=== PATIENT | male | born 1970 | race Caucasian/White ===

== ENCOUNTER 2020-04-29 14:27 | Outpatient (REF) | payer BC, SELFPAY ==
[2020-04-29 21:33] LABS: HCT 38.5 % (40.0-50.0); HGB 12.4 g/dL (13.5-17.5); Mean Corp. HGB Concentration 32.2 g/dL (32.0-36.0); Mean Corpuscular Hemoglobin 25.8 pg (27.0-33.0); Mean Platelet Volume 10.9 fL (8.0-11.0); Platelet Count 249 x1000/uL (130-400); RBC 4.81 m/cumm (4.50-6.00); RBC Distribution Width 14.3 % (11.8-14.1); White Blood Cell Count 5.21 k/cumm (4.4-10.8)
[2020-04-29 22:01] LABS: ALT 41 U/L (16-63); AST 30 U/L (15-37); Alkaline Phosphatase 50 U/L (46-116); Anion Gap 9.5 mmol/L (3-11); BUN 15 mg/dL (7-18); Bilirubin, Total 0.4 mg/dL (0.2-1.0); CO2 25.5 mmol/L (21.0-32.0); CREATININE 0.94 mg/dL (0.70-1.30); Calcium 8.9 mg/dL (8.5-10.1); Calculated LDL 113 mg/dL (<100); Chloride 105 mmol/L (98-107); Cholesterol 188 mg/dL (<200); Glucose 91 mg/dL (74-106); HDL Cholesterol 40 mg/dL (40-60); Potassium 4.3 mmol/L (3.5-5.1); Sodium 140 mmol/L (136-145); TSH 1.26 uIU/mL (0.36-3.74); Total Protein 6.8 g/dL (6.4-8.2); Triglyceride 175 mg/dL (<150)
== END 2020-04-29 14:47 ==
LOC: NCHCN 14:27
PROVIDERS: PCP Family Medicine; Visit Provider Internal Medicine
DX: R73.09 Other abnormal glucose (principal); R53.83 Other fatigue
CPT/HCPCS: 80053; 80061; 85027; 84443

== ENCOUNTER 2020-05-16 14:16 | Outpatient (REF) | payer BC, SELFPAY ==
[2020-05-16 20:11] LABS: Iron 41 ug/dL (65-175); Total Iron Binding Capacity 451 ug/dL (250-450); Transferrin Sat 9 % (20-55)
[2020-05-16 20:39] LABS: Ferritin 9 ng/mL (26-388); Vitamin B12 473 pg/mL (193-986)
== END 2020-05-16 14:36 ==
LOC: NCHCN 14:16
PROVIDERS: PCP Family Medicine; Visit Provider Nurse Practitioner Community Health
DX: D64.9 Anemia, unspecified (principal)
CPT/HCPCS: 82607; 82728; 83540; 83550

== ENCOUNTER 2020-06-24 18:46 | Outpatient (REF) | payer BC, SELFPAY ==
[2020-06-27 12:25] LABS: IgA 171 mg/dL (85-499); Interpretation (See Note); Tissue Transglutaminase IgA <1.2 U/mL (<4.0)
== END 2020-06-24 19:06 ==
LOC: NCHCN 18:46
PROVIDERS: PCP Family Medicine; Visit Provider Internal Medicine
DX: E61.1 Iron deficiency (principal); R19.7 Diarrhea, unspecified
CPT/HCPCS: 82784; 83516

== ENCOUNTER 2020-07-19 15:03 | Outpatient (REF) | payer BC, SELFPAY ==
[2020-07-19 21:28] LABS: Abs Immature Grans 0.01 10^3/uL (0.0-0.06); Absolute Basophil Count 0.02 10^3/uL (0.0-0.2); Absolute Eosinophil Count 0.12 10^3/uL (0.0-0.7); Absolute Lymphocyte Count 2.24 10^3/uL (1.2-3.4); Absolute Neutrophil Count 3.08 10^3/uL (1.2-6.7); Basophils % 0.3; HCT 42.9 % (40.0-50.0); HGB 14.2 g/dL (13.5-17.5); Immature Grans % 0.2; Lymphocytes % 38.2; MCH 27.8 pg (27.0-33.0); MCHC 33.1 % (32.0-36.0); MPV 11.3 fL (8.0-11.0); Monocytes % 6.8; Neutrophils % 52.5; Nucleated RBC 0 %; Platelet Count 220 10^3/uL (130-400); RBC 5.11 10^6/uL (4.36-5.78); RDW 16.6 % (11.8-14.1); RDW-SD 51.4 fL; WBC 5.87 10^3/uL (4.4-10.8)
[2020-07-19 22:08] LABS: Ferritin 32 ng/mL (26-388)
== END 2020-07-19 15:23 ==
LOC: NCHCN 15:03
PROVIDERS: PCP Family Medicine; Visit Provider Internal Medicine
DX: E61.1 Iron deficiency (principal)
CPT/HCPCS: 82728; 85025

== ENCOUNTER 2020-10-21 10:33 | Outpatient (REF) | payer BC, SELFPAY ==
[2020-10-21 21:46] LABS: Hemoglobin A1C 5.3 % (<5.7)
[2020-10-21 22:03] LABS: Calculated LDL 151 mg/dL (<100); Cholesterol 218 mg/dL (<200); Ferritin 53 ng/mL (26-388); Glucose 99 mg/dL (74-106); HDL Cholesterol 49 mg/dL (40-60); Triglyceride 93 mg/dL (<150)
== END 2020-10-21 10:53 ==
LOC: NCHCN 10:33
PROVIDERS: PCP Family Medicine; Visit Provider Internal Medicine
DX: R73.09 Other abnormal glucose (principal); E61.1 Iron deficiency; Z13.220 Encounter for screening for lipoid disorders
CPT/HCPCS: 80061; 82947; 82728; 83036

== ENCOUNTER 2021-05-26 09:04 | Outpatient (REF) | payer BC, SELFPAY ==
[2021-05-26 14:41] LABS: Abs Immature Grans 0.01 10^3/uL (0.0-0.06); Absolute Basophil Count 0.02 10^3/uL (0.0-0.2); Absolute Eosinophil Count 0.17 10^3/uL (0.0-0.7); Absolute Lymphocyte Count 1.89 10^3/uL (1.2-3.4); Absolute Monocyte Count 0.42 10^3/uL (0.1-0.8); Absolute Neutrophil Count 2.15 10^3/uL (1.2-6.7); Basophils % 0.4; Eosinophils % 3.6; HCT 40.3 % (40.0-50.0); HGB 13.4 g/dL (13.5-17.5); Immature Grans % 0.2; Lymphocytes % 40.6; MCH 29.5 pg (27.0-33.0); MCHC 33.3 % (32.0-36.0); MCV 88.8 fL (80-95); MPV 10.8 fL (8.0-11.0); Neutrophils % 46.2; Nucleated RBC 0 %; Platelet Count 229 10^3/uL (130-400); RBC 4.54 10^6/uL (4.36-5.78); RDW 13.2 % (11.8-14.1); RDW-SD 42.5 fL; WBC 4.66 10^3/uL (4.4-10.8)
[2021-05-26 15:00] LABS: Hemoglobin A1C 5.8 % (<5.7)
[2021-05-26 15:07] LABS: Calculated LDL 138 mg/dL (<100); Cholesterol 203 mg/dL (<200); Ferritin 15 ng/mL (26-388); HDL Cholesterol 52 mg/dL (40-60); Triglyceride 65 mg/dL (<150)
== END 2021-05-26 09:05 | disposition home or self-care (01) ==
LOC: NCHCN 09:04
PROVIDERS: PCP Family Medicine; Visit Provider Internal Medicine
DX: R73.03 Prediabetes (principal); E78.5 Hyperlipidemia, unspecified; D64.9 Anemia, unspecified
CPT/HCPCS: 80061; 82728; 83036; 85025

== ENCOUNTER 2021-06-05 11:49 | Outpatient (REF) | payer BC, SELFPAY ==
[2021-06-09 19:30] LABS: Testosterone, Free 7.32 ng/dL (4.06-15.6); Testosterone, Total 305 ng/dL (240-950)
== END 2021-06-05 11:50 | disposition home or self-care (01) ==
LOC: NCHCN 11:49
PROVIDERS: PCP Family Medicine; Visit Provider Internal Medicine
DX: D64.9 Anemia, unspecified (principal); N52.9 Male erectile dysfunction, unspecified
CPT/HCPCS: 84402; 84403

== ENCOUNTER 2021-12-04 15:49 | Outpatient (REF) | payer BC, SELFPAY ==
[2021-12-04 15:32] LABS: Abs Immature Grans 0.01 10^3/uL (0.0-0.06); Absolute Basophil Count 0.02 10^3/uL (0.0-0.2); Absolute Eosinophil Count 0.15 10^3/uL (0.0-0.7); Absolute Monocyte Count 0.48 10^3/uL (0.1-0.8); Absolute Neutrophil Count 2.86 10^3/uL (1.2-6.7); Basophils % 0.4; Eosinophils % 2.7; HCT 45.9 % (40.0-50.0); HGB 15.4 g/dL (13.5-17.5); Immature Grans % 0.2; Lymphocytes % 37.4; MCH 30.7 pg (27.0-33.0); MCHC 33.6 % (32.0-36.0); MCV 91.4 fL (80-95); MPV 10.5 fL (8.0-11.0); Monocytes % 8.5; Neutrophils % 50.8; Nucleated RBC 0 %; Platelet Count 198 10^3/uL (130-400); RBC 5.02 10^6/uL (4.36-5.78); RDW 12.2 % (11.8-14.1); RDW-SD 40.8 fL; WBC 5.62 10^3/uL (4.4-10.8)
[2021-12-04 15:53] LABS: ALT 40 U/L (16-63); AST 25 U/L (15-37); Albumin 4.4 g/dL (3.4-5.0); Alkaline Phosphatase 46 U/L (46-116); Anion Gap 9.1 mmol/L (3-11); BUN 23 mg/dL (7-18); Bilirubin, Total 0.5 mg/dL (0.2-1.0); CO2 27.9 mmol/L (21.0-32.0); CREATININE 0.9 mg/dL (0.70-1.30); Calcium 8.8 mg/dL (8.5-10.1); Chloride 103 mmol/L (98-107); Ferritin 106 ng/mL (26-388); Glucose 107 mg/dL (74-106); Potassium 3.7 mmol/L (3.5-5.1); Sodium 140 mmol/L (136-145); Total Protein 7.2 g/dL (6.4-8.2)
[2021-12-04 16:12] LABS: Hemoglobin A1C 5.3 % (<5.7)
== END 2021-12-04 15:50 | disposition home or self-care (01) ==
LOC: NCHCN 15:49
PROVIDERS: PCP Family Medicine; Visit Provider Internal Medicine
DX: D64.9 Anemia, unspecified (principal); E61.1 Iron deficiency; R73.03 Prediabetes
CPT/HCPCS: 80053; 82728; 83036; 85025

== ENCOUNTER 2022-12-04 13:18 | Outpatient (REF) | payer BC, SELFPAY ==
[2022-12-04 14:55] LABS: Abs Immature Grans 0.02 10^3/uL (0.0-0.06); Absolute Basophil Count 0.02 10^3/uL (0.0-0.2); Absolute Eosinophil Count 0.09 10^3/uL (0.0-0.7); Absolute Lymphocyte Count 1.57 10^3/uL (1.2-3.4); Absolute Monocyte Count 0.39 10^3/uL (0.1-0.8); Absolute Neutrophil Count 2.36 10^3/uL (1.2-6.7); Basophils % 0.4; HGB 14.8 g/dL (13.5-17.5); Immature Grans % 0.4; Lymphocytes % 35.3; MCH 30.6 pg (27.0-33.0); MCHC 34.4 % (32.0-36.0); MCV 89 fL (80-95); MPV 10.8 fL (8.0-11.0); Monocytes % 8.8; Neutrophils % 53.1; Platelet Count 188 10^3/uL (130-400); RBC 4.84 10^6/uL (4.36-5.78); RDW 12.4 % (11.8-14.1); RDW-SD 40.5 fL; WBC 4.45 10^3/uL (4.4-10.8)
[2022-12-04 15:10] LABS: Calculated LDL 140 mg/dL (<100); Cholesterol 204 mg/dL (<200); HDL Cholesterol 46 mg/dL (40-60); Triglyceride 93 mg/dL (<150)
[2022-12-04 15:29] LABS: Hemoglobin A1C 5.4 % (<5.7)
== END 2022-12-04 13:19 | disposition home or self-care (01) ==
LOC: NCHCN 13:18
PROVIDERS: PCP Family Medicine; Visit Provider Internal Medicine
DX: D64.9 Anemia, unspecified (principal); R73.03 Prediabetes; E78.5 Hyperlipidemia, unspecified
CPT/HCPCS: 80061; 83036; 85025

== ENCOUNTER 2023-11-11 12:44 | Outpatient (CLI) | payer BC, SELFPAY ==
--- NOTE | 2023-11-11 08:15 | DI.RAD_ITS ---
Exam(s) XR KNEE LT 4V AP,LAT,AYANNA,PAT EXAM: XR KNEE LT 4V AP,LAT,AYANNA,PAT CLINICAL HISTORY: L knee pain. TECHNIQUE: 2D digital imaging was performed of the left knee. Four images were obtained. Merchant, AP, lateral and PA tunnel views were obtained. COMPARISON: No exams were available for comparison FINDINGS: BONES: No acute fracture is present. No bony destructive lesion is seen. JOINTS: The knee is normally aligned. No joint effusion is seen. SOFT TISSUE: Normal. IMPRESSION: Normal radiographs of the left knee. If there is concern for internal derangement, an MRI may be obta ined for further evaluation. DATA REPOSITORY: RADIATION DOSE DELIVERED:
== END 2023-11-11 12:45 | disposition home or self-care (01) ==
LOC: DIORS 12:44
PROVIDERS: PCP Internal Medicine; Visit Provider Physician Assistant
DX: M25.562 Pain in left knee (principal)
CPT/HCPCS: 73564

== ENCOUNTER → 2023-11-29 00:31 | Outpatient (CLI) | payer BC, SELFPAY ==
--- NOTE | 2023-11-29 11:20 | DI.MRI_ITS ---
Exam(s) MR LOWER JOINT LT WO EXAM: MR LOWER JOINT LT WO CLINICAL HISTORY: PAIN,INTERNAL DERANGEMENT LT KNEE,M23.92. TECHNIQUE: Multiplanar multisequence MRI was performed. COMPARISON: CR XR KNEE LT 4V AP,LAT,AYANNA,PAT from 11/11/2023 FINDINGS: BONES: There is no fracture or contusion pattern. JOINTS: A small joint effusion is present. Articular cartilage: Patellofemoral joint: Thinning and focal defect at patellar apex. Small amount of high signal in the underlying bone. Medial femoral tibial joint: Articular cartilage is unremarkable. Lateral femoral tibial joint: Articular cartilage is unremarkable. TENDONS: Extensor mechanism: Unremarkable. Medial retinaculum: Unremarkable. Lateral retinaculum: Unremarkable. Popliteus: Unremarkable. MUSCLES: Unremarkable. MENISCI: The medial meniscus shows a radially oriented tear near the root. Renal changes in the body. The lateral meniscus is unremarkable. SOFT TISSUES: small Gordon's cyst. Metallic artifacts in the subcutaneous fat anterior to the cain la and proximal patellar tendon. LIGAMENTS: Anterior Cruciate: some surrounding fluid but no visible focal tear. Posterior Cruciate: Unremarkable. Medial Collateral:Unremarkable. Lateral Collateral: Unremarkable. IMPRESSION: Radial tear near the root of the posterior horn of the medial meniscus. 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 DATA REPOSITORY:
== END ==
PROVIDERS: PCP Internal Medicine; Visit Provider Student in an Organized Health Care Education/Training Program
DX: M23.222 Derangement of posterior horn of medial meniscus due to old tear or injury, left knee (principal)
CPT/HCPCS: 73721

== ENCOUNTER 2024-02-05 08:10 | Outpatient (REF) | payer BC, SELFPAY ==
[2024-02-05 15:43] LABS: HCT 43.3 % (40.0-50.0); MCH 30.6 pg (27.0-33.0); MCHC 34.6 % (32.0-36.0); MCV 88 fL (80-95); MPV 10.4 fL (8.0-11.0); Platelet Count 222 10^3/uL (130-400); RDW 12.6 % (11.8-14.1); RDW-SD 40.8 fL; WBC 4.93 10^3/uL (4.4-10.8)
[2024-02-05 16:09] LABS: ALT 32 U/L (16-63); AST 26 U/L (15-37); Albumin 4.2 g/dL (3.4-5.0); Alkaline Phosphatase 43 U/L (46-116); Anion Gap 9.6 mmol/L (3-11); BUN 19 mg/dL (7-18); Bilirubin, Total 0.7 mg/dL (0.2-1.0); CO2 26.4 mmol/L (21.0-32.0); Calcium 8.8 mg/dL (8.5-10.1); Calculated LDL 148 mg/dL (<100); Chloride 107 mmol/L (98-107); Cholesterol 214 mg/dL (<200); Estimated GFR 89.44 (mL/min/1.73m2); Ferritin 133 ng/mL (26-388); Glucose 103 mg/dL (74-106); HDL Cholesterol 47 mg/dL (40-60); Potassium 4.5 mmol/L (3.5-5.1); Sodium 143 mmol/L (136-145); Total Protein 7.2 g/dL (6.4-8.2); Triglyceride 96 mg/dL (<150)
[2024-02-05 16:13] LABS: Hemoglobin A1C 5.6 % (<5.7)
== END 2024-02-05 08:11 | disposition home or self-care (01) ==
LOC: NCHCN 08:10
PROVIDERS: PCP Internal Medicine; Visit Provider Internal Medicine
DX: Z00.00 Encounter for general adult medical examination without abnormal findings (principal); E61.1 Iron deficiency; Z13.220 Encounter for screening for lipoid disorders; Z13.228 Encounter for screening for other metabolic disorders; Z13.1 Encounter for screening for diabetes mellitus
CPT/HCPCS: 80053; 80061; 85027; 82728; 83036

== ENCOUNTER 2024-06-17 09:16 | Day surgery (SDC) | payer BC, SELFPAY ==
[2024-06-17 09:21] VITALS: BP 113/67; PULSE 70; RESP 16; TEMP 36; O2SAT 95
[2024-06-17 09:38] VITALS: BMI 29.2
--- NOTE | 2024-06-17 09:38 | W.ANESPRE ---
General Info Date of Service Date Performed: 06/17/24 Height: 5 ft 10 in Weight: 92.6 kg Body Mass Index (BMI): 29.2 Surgical Procedure: Operation Date: 06/17/24 11:10 Proposed Procedure Side Surgeon p Knee Arthroscopy Left Khang Felipe MD Actual Procedure Side Surgeon p Knee Arthroscopy Left Khang Felipe MD Pre-Op Diagnosis Post-Op Diagnosis Tear of medial meniscus of left knee Meds Allergies and Home Medications Allergies Allergy/AdvReac Type Severity Reaction Status Date / Time sulfasalazine Allergy Intermediate rash Verified 06/17/24 09:28 moxifloxacin (From Avelox) Allergy Mild rash Verified 06/17/24 09:28 Home Medication ?Medication ?Instructions ?Recorded cholecalciferol (vitamin D3) 50 50 mcg PO DAILY 10/01/23 mcg (2,000 unit) capsule ferrous sulfate 325 mg (65 mg 325 mg PO DAILY 10/01/23 iron) tablet (Feosol) fluticasone propionate 50 1 spray intranasal DAILY 10/01/23 mcg/actuation nasal spray,suspension (Flonase Allergy Relief) magnesium 500 mg tablet 500 mg PO DAILY 10/01/23 omeprazole 20 mg capsule,delayed 20 mg PO DAILY 11/11/23 release tamsulosin 0.4 mg capsule 0.4 mg PO DAILY 04/27/24 loratadine 10 mg tablet 10 mg PO DAILY Allergies 06/15/24 Current Visit Medications: Current Medications Generic Name Dose Route Start Last Admin Trade Name Freq PRN Reason Stop Dose Admin Acetaminophen 1,000 mg 06/17/24 06:00 Acetaminophen 500 Mg Tab PO 06/17/24 23:59 PREOP ALANA Celecoxib 400 mg 06/17/24 06:00 Celecoxib 200 Mg Cap PO 06/17/24 23:59 PREOP ALANA Ringer's Solution 1,000 mls @ 80 mls/hr 06/17/24 06:00 IV 06/17/24 23:59 INFUSION ALANA Cefazolin Sodium/Dextrose 2 gm in 50 mls @ 100 mls/hr 06/17/24 06:00 Ancef Duplex IVPB 06/17/24 23:59 PREOP ALANA IV Miscellaneous Supplies 1 each 06/17/24 06:00 Iv Access IV 06/17/24 23:59 DIRECTED ALANA Sodium Chloride 0 ml 06/17/24 06:00 Normal Saline Flush 10 Ml Syr IV 06/17/24 23:59 PRN PRN Sodium Chloride 0 ml 06/17/24 06:00 Normal Saline 10 Ml Vial IJ 06/17/24 23:59 DIRECTED PRN Sterile Water 0 ml 06/17/24 06:00 Water,Injection,Sterile 10 Ml Vial IJ 06/17/24 23:59 DIRECTED PRN PFSH Active Problems Active Problems: Problem Status Onset Code Tear of medial meniscus of left knee Acute S83.242A Internal derangement of left knee Acute M23.92 Prediabetes Acute R73.03 Major depress dis, severe Acute F32.2 Hyperlipidemia Acute E78.5 Medical History Medical History Atopic dermatitis GERD (gastroesophageal reflux disease) Migraine Erectile dysfunction Iron deficiency Tobacco Smoking/Tobacco Use Status: Never Alcohol Alcohol Intake: current Alcohol intake frequency: a few times a month Substance Use Substance use: Never Substance use type: does not use Vital Signs and Lab Results Vital Signs Most Recent Vital Signs in EMR: Most Recent Vital Signs Temp Pulse Resp BP Pulse Ox 36 C L 70 16 113/67 95 06/17/24 09:21 06/17/24 09:21 06/17/24 09:21 06/17/24 09:21 06/17/24 09:21 Lab Results Blood Type / Crossmatch: No Data to Display Complete Blood Count: No Data to Display Complete Metabolic Panel: No Data to Display Liver Function Panel: No Data to Display Coagulation Panel: No Data to Display Cardiac Panel: No Data to Display Arterial Blood Gas: No Data to Display Venous Blood Gas: No Data to Display Pancreas Panel: No Data to Display Thyroid Panel: No Data to Display Infectious Disease: No Data to Display Blood Cultures: No Data to Display Toxicology Panel: No Data to Display Anesthesia Assessment and Plan Anesthesia History Personal History: No History of Anesthesia Complications Family History: No Family History of Anesthesia Complications Exercise Tolerance Exercise Tolerance: Metabolic Equivalents>4 Pertinent Negatives Pertinent Negatives: No Symptoms of GERD, No Major Cardiovascular Symptoms or Complaints and No Major Pulmonary Symptoms or Complaints Cardiac & Pulmonary Exam Cardiac Exam: Normal S1/S2 Heart Sounds Pulmonary Exam: Clear Bilateral Breath Sounds Implantable Cardiac Device Does patient have a Pacemaker or an ICD?: No Airway Exam Known Difficult Airway: No Mallampati Class: 2 Mouth Opening: Normal (> 3cm) Thyromental Distance: Less than 3 cm Neck Range of Motion: Full ROM Neck Circumference: Normal Teeth Condition: Normal Dentition ASA Classification ASA Score: ASA 2 Emergency Case?: No NPO Status NPO Status: NPO Clears >2 hours, Solids >8 hours Anesthesia Plan Resuscitation Status: Full Code Anesthesia Technique: Spinal Anesthesia Airway Planned: Natural Airway Monitors Used: Standard Monitors
[2024-06-17] MEDS: Lactated Ringers 1,000 ML 80 ML IV (09:44)
[2024-06-17] MEDS: Acetaminophen 500 MG TAB 1000 MG PO (09:46)
[2024-06-17] MEDS: Celecoxib 200 MG CAP 400 MG PO (09:46)
--- NOTE | 2024-06-17 10:26 | W.PREOPHP ---
Assessment and Plan Assessment and plan (1) Tear of medial meniscus of left knee: Status: Acute Assessment and plan: Blaise is a 53-year-old male who has had persistent pain about his left knee. This has been ongoing for quite some time. Please see the previous office note for detailed history. He continues have pain about the left knee and therefore I have offered arthroscopic intervention including partial medial meniscectomy. I reviewed the surgery to him once again. I discussed the risk to include bleeding, infection, pain, stiffness, retear, worsening arthritis, need for repeat procedures. Despite these risk, he elects to proceed. History of Present Illness History of Present Illness Chief Complaint: Left Knee Pain Narrative: Left Knee Pain Review of Systems All systems reviewed & are unremarkable except as noted in HPI and below PFSH All Active Problems Tear of medial meniscus of left knee (Acute) Internal derangement of left knee (Acute) Prediabetes (Acute) Major depress dis, severe (Acute) Hyperlipidemia (Acute) Medical History Atopic dermatitis GERD (gastroesophageal reflux disease) Migraine Erectile dysfunction Iron deficiency Social History Smoking/Tobacco Use Status: Never Smoking risk assessment performed?: Yes Alcohol Intake: current Alcohol Intake frequency: a few times a month Drug use: Never Substance use type: does not use Housing: house Do you feel safe at home: Yes Do you feel safe in your relationship?: Yes Meds Allergies and Home Medications Allergies Allergy/AdvReac Type Severity Reaction Status Date / Time sulfasalazine Allergy Intermediate rash Verified 06/17/24 09:28 moxifloxacin (From Avelox) Allergy Mild rash Verified 06/17/24 09:28 Home Medications ?Medication ?Instructions ?Recorded ?Confirmed ?Type cholecalciferol (vitamin D3) 50 50 mcg PO DAILY 10/01/23 06/17/24 History mcg (2,000 unit) capsule ferrous sulfate 325 mg (65 mg 325 mg PO DAILY 10/01/23 06/17/24 History iron) tablet (Feosol) fluticasone propionate 50 1 spray intranasal DAILY 10/01/23 06/17/24 History mcg/actuation nasal spray,suspension (Flonase Allergy Relief) magnesium 500 mg tablet 500 mg PO DAILY 10/01/23 06/17/24 History omeprazole 20 mg capsule,delayed 20 mg PO DAILY 11/11/23 06/17/24 History release tamsulosin 0.4 mg capsule 0.4 mg PO DAILY 04/27/24 06/17/24 History loratadine 10 mg tablet 10 mg PO DAILY Allergies 06/15/24 06/17/24 History Exam Const General: cooperative, healthy appearing, comfortable and no acute distress Resp Effort & Inspection: normal respiratory effort Auscultation: clear to auscultation bilaterally Cardio Rate: regular rate Rhythm: regular rhythm Results Imaging Imaging Studies: Previous MRI was reviewed which shows a tear of the medial meniscus. Last Vital Signs Temp 36 C L 06/17/24 09:21 Pulse 70 06/17/24 09:21 Resp 16 06/17/24 09:21 BP 113/67 06/17/24 09:21 Pulse Ox 95 06/17/24 09:21
[2024-06-17] MEDS: ceFAZolin 2 GM/50 ML BAG IVPB (10:35)
--- NOTE | 2024-06-17 10:55 | W.PM.DSUDISC ---
Date of service: 06/17/24 Time of Service: 10:55 Discharge Plan Disposition Patient Disposition: Home Condition: Good Discharge Details Reason For Visit: L Knee arthroscopy Attending Provider: Khang Felipe Primary Care Provider: Anahy Nunes Home Meds and New Rx's Prescriptions: New acetaminophen 500 mg tablet 1,000 mg PO TID Qty: 90 0RF hydrocodone-acetaminophen 5-325 mg tablet 1 tab PO Q6H PRN (Reason: pain) Qty: 6 0RF ibuprofen 600 mg tablet 600 mg PO TID PRN (Reason: pain) Qty: 90 0RF Continued omeprazole 20 mg capsule,delayed release(DR/EC) 20 mg PO DAILY tamsulosin 0.4 mg capsule 0.4 mg PO DAILY magnesium 500 mg tablet 500 mg PO DAILY cholecalciferol (vitamin D3) 50 mcg (2,000 unit) capsule 50 mcg PO DAILY ferrous sulfate [Feosol] 325 mg (65 mg iron) tablet 325 mg PO DAILY fluticasone propionate [Flonase Allergy Relief] 50 mcg/actuation spray,suspension 1 spray intranasal DAILY Rx Instructions: administer into each nostril loratadine 10 mg tablet 10 mg PO DAILY Patient Comments: Daily for now Discharge Instructions Stand Alone Forms: Anesthesia Discharge Inst., Jovon Guerrero ([facility]), [facility] Knee Arthroscopy Referrals: Khang Felipe MD [ [facility] STAFF PHYSICIAN] - Equipment/Supplies: Partial Weight Bearing Crutches Activity:: Activity as Tolerated Remove Dressings/Wound Care:: 72 hours Shower/Bathe:: 72 hours Diet:: As Tolerated Discharge Orders Discharge Orders: Discharge Order (Routine); Ordered 06/17/24 Ordered By: Tolu Seymour DS: Diagnosis Discharge Diagnosis (1) Tear of medial meniscus of left knee: Status: Acute
[2024-06-17] MEDS: Bupivacaine 0.5% Pres-Free 30 ML VIAL (11:04)
[2024-06-17] MEDS: EPINEPHrine 10 MG/10 ML ML (11:20)
[2024-06-17 11:35] VITALS: BP 99/67; PULSE 69; RESP 16; TEMP 36.3; O2SAT 98
[2024-06-17 12:10] VITALS: BP 115/58; PULSE 55; RESP 16; TEMP 35.9; O2SAT 100
--- NOTE | 2024-06-17 12:51 | W.ANESPOSTOP ---
Postoperative Evaluation Date, Time and Location Date Performed: 06/17/24 Time Performed: 12:15 Patient Location: Day Surgery Unit Vital Signs Most Recent Imported Vital Signs: Most Recent Vital Signs Temp Pulse Resp BP Pulse Ox 35.9 C L 55 L 16 115/58 L 100 06/17/24 12:10 06/17/24 12:10 06/17/24 12:10 06/17/24 12:10 06/17/24 12:10 Pain Score Most Recent Pain Score: Most Recent Pain Score Pain Level 0 06/17/24 12:10 Assessment Mental Status: Awake (Alert & Oriented to Patient Baseline) Airway and Respiratory Function: Patent airway with normal (patient baseline) respiratory exam Cardiovascular Function: Hemodynamically Stable Hydration Status: Adequately Hydrated Nausea & Vomiting: No Nausea or Vomiting Pain: Pt. Denies Any Pain Peripheral Nerve Block: Patient did not receive a nerve block
--- NOTE | 2024-06-17 16:07 | ROE_ITS ---
Date of service: 06/17/24 Time of Service: 11:40 Operative Note Operative Note DATE OF PROCEDURE: 06/17/24 PRE-OP DIAGNOSIS: Left Medial Meniscus Tear POST-OP DIAGNOSIS: same (and Tense Medial Plica) PROCEDURE: Arthroscopic Partial Medial Menisecotmy, Medial Plica Excision SURGEON: Khang Felipe ANESTHESIA TYPE: Spinal Refer to Anesthesia Record ESTIMATED BLOOD LOSS: 0 PATHOLOGY: none sent COMPLICATIONS: None Patient was transported to: PACU Patient's condition: stable Indications: I have seen Blaise in clinic for symptoms of a meniscus tear. This was confirmed based on MRI and exam findings. Nonoperative measures were exhausted but disability and pain persisted. I discussed knee arthroscopy with meniscal intervention with the patient. I reviewed the risks of the procedure to include, but not limited to, bleeding, infection, pain, stiffness, damage to nerves or vessels, recurrence, blood clot. Despite these risks, the patient elected to proceed. Findings: A diagnostic arthroscopy was performed with the following findings: Suprapatellar Pouch: No significant inflammation, No loose bodies Medial Compartment: Complex medial meniscal tear, Intact meniscal root, No significant chondromalacia or signs of arthritis, No loose bodies Notch: ACL and PCL were intact Lateral Compartment: No meniscal tear, Intact meniscal root, No significant chondromalacia or signs of arthritis, No loose bodies Patellofemoral Compartment: No significant chondromalacia, No apparent patellar maltracking Procedure Description: Blaise was greeted in the preoperative holding area where the correct side was identified and marked. The consent was reviewed with the patient and signed. The history and physical was updated. All questions were answered. He was taken back to the operating room. The patient was placed into the supine position on the operating room table. All bony prominences were well padded. Prophylactic antibiotics in the form of Cefazolin were administered. The left leg was then prepped with Chloraprep and draped in a standard fashion with stockinette and extremity drape. A timeout to confirm correct identity, side and site, procedure, allergies, anesthesia, and medical concerns was performed. The leg was placed into a pneumatic leg abdi, [id number]. A standard lateral portal was made at the lateral border of the patella tendon in line with the inferior pole of the patella, soft spot. The skin and deep tissue was incised sharply and the blunt trochar was inserted atraumatically. A diagnostic arthroscopy was performed and the findings are listed above. The suprapatellar pouch had no significant inflammatory change. The patellofemoral articulation showed no articular damage as well as good tracking. The lateral gutter had no loose bodies and the medial gutter had no loose bodies. The knee was brought into some valgus stress in extension to open the medial compartment. A medial portal was made, localized by a spinal needle. The portal was created with an #11 blade through skin and capsule under direct visualization avoiding any meniscal injury. A probe was then inserted into the medial compartment. The medial compartment was fully inspected. The chondral surface of the tibia show ed no significant chondromalacia and the surface of the femur showed no significant chondromalacia. The medial meniscus had a complex tear from the posterior horn to the root. This had both a horizontal cleavage component which extended to the capsular junction as well as a radial component. Peripheral fibers were intact and the overall tissue was of poor quality and degenerative in neature. After evaluation, the meniscus was debrided down to a stable base using a series of biters and arthroscopic william. It was probed afterwards to confirm that the tear had been removed and the meniscus was stable. The notch was then inspected which showed an intact ACL and an intact PCL. The leg was then brought into a figure of 4 position. The lateral compartment was fully inspected with the arthroscope and a probe. The chondral surface of the lateral femur showed no significant chondromalacia. The chondral surface of the lateral tibia showed no significant chondromalacia. The lateral meniscus had no meniscal tear. The arthroscope was brought back into the suprapatellar pouch and the leg was in full extension. The knee was thoroughly irrigated with the arthroscopic fluid on high flow and pressure. Inflow was stopped and excess fluid was removed. The wounds were closed with 4-0 Nylon. The knee portal sites and joint was injected with 0.25% Bupivacaine. They were dressed with Xeroform, 4x4 gauze, ABD pad, Kerlix and an DARRIAN wrap. A cryo-cuff was applied. The patient tolerated the procedure well and was returned to the Same Day Surgery area in a stable condition suffering no known complication.
== END 2024-06-17 13:39 | disposition home or self-care (01) ==
PROVIDERS: PCP Internal Medicine; Visit Provider Student in an Organized Health Care Education/Training Program
PROC: (CPT 29870; principal; 2024-06-17 11:00)
DX: M23.232 Derangement of other medial meniscus due to old tear or injury, left knee (principal); M67.52 Plica syndrome, left knee; K21.9 Gastro-esophageal reflux disease without esophagitis; E78.5 Hyperlipidemia, unspecified
CPT/HCPCS: 29881; J0665; J0690; J1100; J2001; J2401; J2405; J2704

== ENCOUNTER 2025-02-08 10:19 | Outpatient (REF) | payer BC, SELFPAY ==
[2025-02-08 14:53] LABS: HCT 45.3 % (40.0-50.0); HGB 15.2 g/dL (13.5-17.5); MCH 30.6 pg (27.0-33.0); MCHC 33.6 % (32.0-36.0); MCV 91 fL (80-95); MPV 10.2 fL (8.0-11.0); Platelet Count 183 10^3/uL (130-400); RBC 4.96 10^6/uL (4.36-5.78); RDW 12.5 % (11.8-14.1); RDW-SD 41.1 fL; WBC 4.52 10^3/uL (4.4-10.8)
[2025-02-08 15:22] LABS: Hemoglobin A1C 5.6 % (<5.7)
[2025-02-08 15:40] LABS: Anion Gap 7.2 mmol/L (3-11); BUN 17 mg/dL (7-18); CO2 29.8 mmol/L (21.0-32.0); CREATININE 0.9 mg/dL (0.70-1.30); Calcium 9.1 mg/dL (8.5-10.1); Calculated LDL 145 mg/dL (<100); Chloride 107 mmol/L (98-107); Cholesterol 217 mg/dL (<200); Estimated GFR 100.86 (mL/min/1.73m2); Ferritin 212 ng/mL (26-388); Glucose 104 mg/dL (74-106); HDL Cholesterol 50 mg/dL (>or=40); Potassium 4.3 mmol/L (3.5-5.1); Sodium 144 mmol/L (136-145); Triglyceride 112 mg/dL (<150)
[2025-02-08 22:46] LABS: PSA, Screening 0.6 ng/mL (<=3.5)
== END 2025-02-08 10:20 | disposition home or self-care (01) ==
LOC: NCHCN 10:19
PROVIDERS: PCP Internal Medicine; Visit Provider Internal Medicine
DX: R73.03 Prediabetes (principal); E61.1 Iron deficiency; E78.5 Hyperlipidemia, unspecified; Z00.00 Encounter for general adult medical examination without abnormal findings
CPT/HCPCS: 80048; 80061; 84153; 85027; 82728; 83036

== ENCOUNTER 2025-03-15 01:55 | Outpatient (CLI) | payer BC, SELFPAY ==
--- NOTE | 2025-03-15 06:15 | DI.MRI_ITS ---
Exam(s) MR LOWER JOINT LT WO EXAM: MR LOWER JOINT LT WO CLINICAL HISTORY: PAIN,tear medial meniscus lt knee,internal derangement lt knee,m23.92,. TECHNIQUE: Multiplanar multisequence MRI was performed. COMPARISON: MR MR LOWER JOINT LT WO from 11/29/2023 FINDINGS: BONES: There is no fracture or contusion pattern. JOINTS: There is hyperintense signal seen in the articular cartilage overlying the patella with mild edema in the subchondral adjacent bone. The articular cartilage is otherwise well maintained. There is a small joint effusion. TENDONS: Extensor mechanism: Unremarkable. Medial retinaculum: Unremarkable. Lateral retinaculum: Unremarkable. Popliteus: Unremarkable. MUSCLES: Unremarkable. MENISCI: There is again seen intermediate signal in the body and portions of the posterior horn of th e medial meniscus which is likely degenerative. There is also again seen deformity of the posterior horn of the medial meniscus near its root. This may reflect postsurgical change versus retear. The lateral meniscus is unremarkable. SOFT TISSUES: There is a popliteal cyst measuring 1.5 cm AP x 1.9 cm transverse by 6.5 cm craniocauda d. Artifact is again seen in the soft tissues anterior to the patella and extensor mechanism which a ppears to be postsurgical. LIGAMENTS: Anterior Cruciate: Unremarkable. Posterior Cruciate: Unremarkable. Medial Collateral:Unremarkable. Lateral Collateral: Unremarkable. OTHER: IMPRESSION: 1. Persistent decrease in size and abnormal signal involving the posterior horn of the medial meniscu s which may reflect postsurgical changes. Findings of a retear cannot be excluded. Please correlate clinically. 2. No evidence of a ligament tear. 3. Postsurgical artifact seen anterior to the extensor mechanism. 4. Moderate size popliteal cyst. 5. Chondromalacia patella. 6. Small joint effusion. DATA REPOSITORY:
== END 2025-03-15 02:15 ==
LOC: DI 01:55
PROVIDERS: PCP Internal Medicine; Visit Provider Student in an Organized Health Care Education/Training Program
DX: M22.42 Chondromalacia patellae, left knee
CPT/HCPCS: 73721